=== PATIENT | male | born 1985 | race Caucasian/White ===

== ENCOUNTER 2016-03-21 09:06 | Emergency (ER) | payer OTHER ==
[2016-03-21 09:13] VITALS: TEMP 98.4
--- NOTE | 2016-03-21 09:38 | EDPHY ---
H & P Stated Complaint: dizzy/lightheaded/off balance also r shoulder pain/appt for cortisone shot Time Seen by Provider: 03/21/16 09:33 HPI/ROS: HPI: 27-year-old male presents to emergency department with chief concern hard time focusing, a lightheaded feeling x4 days. It is worse in the morning and at night. There is pressure in my head associated with this but denies headache. Associated with mild intermittent nausea and intermittent shortness of breath. Reports seeing colors in my peripheral vision. Denies fever, chills, vertigo, URI symptoms including nasal congestion or cough, chest pain, abdominal pain, vomiting, diarrhea, rash. No trauma. Symptoms were worse when he ate, no alleviating factors. Has not had the symptoms in the past. Reports a healed broken rib as diagnosed by primary care within the past month. Has a history of hypertension for which she takes lisinopril. Blood pressure was elevated last time he was at his primary care provider's office. No personal or family history of cardiac problems. PCP Dr. Shepard at [facility]. ROS:10 point review of systems is negative other than as stated in HPI Source: Patient Exam Limitations: No limitations - Personal History Current Tetanus/Diphtheria Vaccine: Unsure - Medical/Surgical History Hx Asthma: No Hx Chronic Respiratory Disease: No Hx Diabetes: No Hx Cardiac Disease: No Hx Renal Disease: No Hx Cirrhosis: No Hx Alcoholism: No Hx HIV/AIDS: No Hx Splenectomy or Spleen Trauma: No Other PMH: chronic r shoulder pain/carpal tunnel surgery/pleurisy - Family History Significant Family History: No pertinent family hx - Social History Smoking Status: Never smoked Alcohol Use: None Drug Use: None Additional Social History: - Physical Exam Exam: Temp 36.9, heart rate 70, respiratory rate 16, blood pressure 170/114, 98% on room air General: Obese, awake, alert, calm, cooperative. No acute distress. Head: Normalocephalic. Atraumatic. EENT: PERRLA. EOMI. No pallor or injection. Anicteric. No nystagmus. No injection. TMs intact bilaterally with normal landmarks. No rhinnorhea, nasal passages clear. Oropharynx without redness, exudates, or lesions. Tonsils 2+ bilaterally, no exudates. Neck: Supple, nontender. No lymphadenopathy. Full range of motion. No meningismus. Respiratory: Breathing unlabored. Breath sounds equal bilaterally and clear to auscultation. No adventitious sounds. CV: Chest nontender, atraumatic. Heart rate regular. No murmur, distal pulses 2+ bilaterally. Brisk cap refill all extremities. No peripheral edema. GI: Abdomen soft, nontender. Bowel sounds normoactive and positive x4 quadrants. : No suprapubic tenderness. No CVA or flank tenderness. Neuro: Alert. Oriented x 3. Speech clear. Nonfocal cranial nerves throughout. Sensation intact all extremities. Rapid alternating hand movements intact. Finger to nose intact. Heel to klein intact. Negative Romberg. Negative pronator drift. Gait even and steady. Memory and recall of 3/3 objects at 5 minutes intact. Upper and lower extremity DTRs 2+. Skin: Skin warm, dry, intact. No rashesSkin turgor normal. Extremities: Full range of motion in all 4 extremities. Strength equal and 5+ all extremities. Constitutional: Initial Vital Signs Temperature (C) 36.9 C 03/21/16 09:09 Heart Rate 70 03/21/16 09:09 Respiratory Rate 16 03/21/16 09:09 Blood Pressure 170/114 H 03/21/16 09:09 O2 Sat (%) 98 03/21/16 09:09 O2 Delivery Mode Room Air Allergies/Adverse Reactions: No Known Allergies Allergy (Unverified 03/21/16 09:08) Home Medications: Medication Instructions Recorded Albuterol Hfa Anes Only [Proair 2 puffs IH QID PRN #1 mdi 03/21/16 Hfa Anes Only] Lisinopril 03/21/16 Medical Decision Making - Diagnostics Imaging: PA and Lateral Chest History: Shortness of breath in a 30-year-old male; no previous studies are available for comparison. Findings: The heart and mediastinal contours are normal. Pulmonary vascularity is normal. There is mild central peribronchial thickening. Flattening of the hemidiaphragms suggest an element of hyperexpansion. There is elevation of the anterior aspect of the right hemidiaphragm. There are no alveolar opacities seen to suggest pneumonia. Impression: Peribronchial thickening and mild hyperexpansion could reflect bronchitis or possibly reactive airways disease. Dictated By: Jerome Cantu MD ED Course/Re-evaluation: Nontoxic 27-year-old male presents to ED with chief concern lightheadedness. Symptoms have been ongoing x4 days associated with nausea and shortness of breath. He denies URI symptoms. He denies trauma. EKG shows sinus rhythm, rate 80, normal intervals, no axis deviation, no evidence of ischemia. Blood pressure 170/114 on arrival to ED. Patient reports this is elevated for him. White count 9000. H&H stable. Basic metabolic panel unremarkable. Chest x-ray shows mild peribronchial thickening suggestive of bronchitis or reactive airway disease. Has no obvious upper respiratory symptoms, no cough. Will prescribe an inhaler. Patient is stable for follow-up with primary care tomorrow. This has been discussed with him. He and his father verbalized understanding and agree to do so. Differential Diagnosis: Differential diagnosis includes but is not limited to pulmonary process including pneumonia, pneumothorax, hypertension, metabolic derangement, anemia, vertigo, viral syndrome, anxiety/stress, Cardiac etiology - Data Points Laboratory Results: Laboratory Results 03/21/16 09:48 03/21/16 09:48 03/21/16 09:48 WBC 9.00 10^3/uL (3.80-9.50) RBC 5.60 10^6/uL (4.40-6.38) Hgb 17.6 H g/dL (13.7-17.5) Hct 49.1 % (40.0-51.0) MCV 87.7 fL (81.5-99.8) MCH 31.4 pg (27.9-34.1) MCHC 35.8 g/dL (32.4-36.7) RDW 12.5 % (11.5-15.2) Plt Count 286 10^3/uL (150-400) MPV 10.1 fL (8.7-11.7) Neut % (Auto) 57.9 % (39.3-74.2) Lymph % (Auto) 31.7 % (15.0-45.0) [place] % (Auto) 8.2 % (4.5-13.0) Eos % (Auto) 1.6 % (0.6-7.6) Baso % (Auto) 0.4 % (0.3-1.7) Nucleat RBC Rel Count 0.0 % (0.0-0.2) Absolute Neuts (auto) 5.21 10^3/uL (1.70-6.50) Absolute Lymphs (auto) 2.85 10^3/uL (1.00-3.00) Absolute Monos (auto) 0.74 10^3/uL (0.30-0.80) Absolute Eos (auto) 0.14 10^3/uL (0.03-0.40) Absolute Basos (auto) 0.04 10^3/uL (0.02-0.10) Absolute Nucleated RBC 0.00 10^3/uL (0-0.01) Immature Gran % 0.2 % (0.0-1.1) Immature Gran # 0.02 10^3/uL (0.00-0.10) Sodium 140 mEq/L (134-144) Potassium 4.1 mEq/L (3.5-5.2) Chloride 101 mEq/L (97-110) Carbon Dioxide 26 mEq/l (22-31) Anion Gap 13 mEq/L (8-16) BUN 15 mg/dL (7-23) Creatinine 0.7 mg/dL (0.7-1.3) Estimated GFR > 60 Glucose 89 mg/dL (70-100) Calcium 10.2 mg/dL (8.5-10.4) Departure - Departure Disposition: Home, Routine, Self-Care Clinical Impression: Lightheadedness Reactive airway disease Qualifiers: Asthma severity: unspecified severity Asthma complication type: uncomplicated Qualifier Code: (J45.909) Unspecified asthma, uncomplicated Condition: Good Instructions: Albuterol (By breathing), Reactive Airways Disease (ED), Lightheadedness (ED) Additional Instructions: Plan: Change positions slowly. No driving until cleared by primary care Use your albuterol inhaler 2 puffs every 4-6 hours for shortness of breath. Follow up with primary care tomorrow for recheck and further evaluation--When you call to schedule appointment, please let the office know you are an "ER follow up" appointment" Return for significantly worsening symptoms Referrals: Nasim Shepard MD [Primary Care Provider] - As per Instructions Prescriptions: Albuterol Hfa Anes Only [Proair Hfa Anes Only] 2 puffs IH QID PRN #1 mdi PRN Reason: Short Of Breath/Dyspnea
--- NOTE | 2016-03-21 09:38 | CPEKG ---
Heart Rate: 80 RR Interval: 750 P-R Interval: 180 QRSD Interval: 90 QT Interval: 368 QTC Interval: 425 P Epworth: 47 QRS Epworth: 21 T Wave Epworth: 20 EKG Severity - NORMAL ECG - EKG Impression: SINUS RHYTHM Electronically Signed By: Galindo Marcum 22-Mar-2016 11:55:53
[2016-03-21 10:00] LABS: % IMMATURE GRANULYOCYTES 0.2 % (0.0-1.1); ABSOLUTE IMMATURE GRANULOCYTES 0.02 10^3/uL (0.00-0.10); ADD DIFF? NO; ADD MORPH? NO; ADD SCAN? NO; ATYPICAL LYMPHOCYTE FLAG 10 (0-99); FRAGMENT RBC FLAG 0 (0-99); HEMATOCRIT 49.1 % (40.0-51.0); HEMOGLOBIN 17.6 g/dL (13.7-17.5); LEFT SHIFT FLG 0 (0-99); LIPEMIA HEMOLYSIS FLAG 90 (0-99); MEAN CELL HEMOGLOBIN 31.4 pg (27.9-34.1); MEAN CELL HEMOGLOBIN CONCENTR. 35.8 g/dL (32.4-36.7); MEAN CELL VOLUME 87.7 fL (81.5-99.8); MEAN PLATELET VOLUME 10.1 fL (8.7-11.7); PLATELET CLUMPS FLAG 0 (0-99); PLATELET COUNT 286 10^3/uL (150-400); RED CELL DISTRIBUTION WIDTH 12.5 % (11.5-15.2)
[2016-03-21 10:01] VITALS: PULSE 85
[2016-03-21 10:15] LABS: ANION GAP 13 mEq/L (8-16); CALCIUM 10.2 mg/dL (8.5-10.4); CARBON DIOXIDE 26 mEq/l (22-31); CHLORIDE 101 mEq/L (97-110); CREATININE 0.7 mg/dL (0.7-1.3); GLOMERULAR FILTRATION RATE > 60; GLUCOSE 89 mg/dL (70-100); POTASSIUM 4.1 mEq/L (3.5-5.2); SODIUM 140 mEq/L (134-144)
--- NOTE | 2016-03-21 10:44 | DX ---
PA and Lateral Chest History: Shortness of breath in a 30-year-old male; no previous studies are available for comparison. Findings: The heart and mediastinal contours are normal. Pulmonary vascularity is normal. There is m ild central peribronchial thickening. Flattening of the hemidiaphragms suggest an element of hyperexp ansion. There is elevation of the anterior aspect of the right hemidiaphragm. There are no alveolar o pacities seen to suggest pneumonia. Impression: Peribronchial thickening and mild hyperexpansion could reflect bronchitis or possibly liu ctive airways disease.
[2016-03-21 11:25] VITALS: RESP 18; O2SAT 95
[2016-03-21 11:30] VITALS: BP 136/111
== END 2016-03-21 11:30 | disposition home or self-care (01) ==
LOC: EDBD 09:06
DX: R42 Dizziness and giddiness (principal); J45.909 Unspecified asthma, uncomplicated